=== PATIENT | male | born 1985 | race Caucasian/White ===

== ENCOUNTER 2022-02-11 22:59 | Emergency (ER) | payer BC, SELFPAY ==
[2022-02-11 23:48] VITALS: BP 151/96; PULSE 100; RESP 18; TEMP 36.6; O2SAT 97; BMI 28.7
[2022-02-12 00:14] VITALS: BP 134/94; PULSE 100; RESP 18; O2SAT 98
--- NOTE | 2022-02-12 00:30 | ED.NURSE ---
at bedside for lac repair
--- NOTE | 2022-02-12 00:36 | ED_ITS ---
HPI - Wound/Laceration General Chief Complaint: Laceration/Wound Stated Complaint: Laceration on right pointer finger Time Seen by Provider: 02/11/22 23:21 History of Present Illness HPI narrative: Patient is a 36-year-old gentleman who cut the palmar aspect of his index finger right hand cutting a piece of plastic tonight. He suffered a 3 cm laceration. He has normal neuromuscular function. He is not up-to-date on his tetanus shot. He has no other significant injuries. Related Data Home Medications Medication Instructions Recorded Confirmed No Known Home Medications 02/11/22 02/11/22 Allergies Allergy/AdvReac Type Severity Reaction Status Date / Time Penicillins Allergy Verified 02/11/22 23:54 migraine med & another Allergy Uncoded 02/11/22 23:54 unknown Review of Systems Status of ROS: Reports: 6 or more systems reviewed and unremarkable except as noted in History and below [facility] Medical History Depression Gastroparesis Surgical History History of discectomy Social History Smoking Status: Current every day smoker What tobacco products do you use: cigarettes Smoking packs per day: 1 Smoking cigarettes per day: 20.0 Years smoked: 20 Smoking pack-years: 20.00 Do you use any of these nicotine containing products: None Second hand tobacco smoke exposure: Yes How often do you have a drink containing alcohol: never How often do you have six or more drinks on one occasion: Never AUDIT-C Alcohol total score: 0 Non-prescribed substance use: denies use service: No Exam Narrative: Exam Narrative: EXAM GENERAL: Patient appears comfortable and well. EYES: No scleral icterus. LYMPH: No supraclavicular or cervical lymphadenopathy. SKIN: Laceration as noted above on the right index finger. EXT: No dependent lower extremity pedal edema. HEART: Regular rate and rhythm with no murmurs, rubs, or gallops. LUNGS: Clear to auscultation bilaterally with no crackles or wheezes. ABD: Soft, non tender, non distended. PSYCH: Good eye contact, speech is not pressured. Const: Vital Signs, click to edit/add: Vital Signs - 24 hr 02/11/22 23:48 02/12/22 00:14 Temperature 97.8 F Pulse Rate [Left P ulse Oximeter] 100 100 Respiratory Rate 18 18 Blood Pressure [Le ft Upper Arm] 151/96 H 134/94 H Pulse Oximetry 97 98 Course Course Hospital Course: The wound was cleaned and injected with 0 2% lidocaine without epinephrine. I then closed the defect using for running 3-0 Ethilon sutures. He was instructed on wound care and will follow-up in 10 days for suture removal. Vital Signs Vital signs: Initial Vital Signs Temperature 97.8 F 02/11/22 23:48 Temperature Source Temporal Artery Scan 02/11/22 23:48 Pulse Rate 100 02/11/22 23:48 Respiratory Rate 18 02/11/22 23:48 Blood Pressure 151/96 H 02/11/22 23:48 Blood Pressure Mean 114 02/11/22 23:48 Blood Pressure Position Sitting 02/11/22 23:48 Pulse Oximetry 97 02/11/22 23:48 Oxygen Delivery Method 02/11/22 23:48 Vital Signs Temperature 97.8 F 02/11/22 23:48 Pulse Rate 100 02/11/22 23:48 Respiratory Rate 18 02/11/22 23:48 Blood Pressure 151/96 H 02/11/22 23:48 Pulse Oximetry 97 02/11/22 23:48 Temperature 97.8 F 02/11/22 23:48 Pulse Rate 100 02/12/22 00:14 Respiratory Rate 18 02/12/22 00:14 Blood Pressure 134/94 H 02/12/22 00:14 Pulse Oximetry 98 02/12/22 00:14 Discharge Plan Discharge Clinical Impression: Laceration Patient Disposition: Home, Self-Care Condition: Stable Instructions: Finger Laceration (ED) Additional Instructions: Sures out in 10days Activity Level: No Restrictions Discharge Diet: Regular Prescriptions: No Action No Known Home Medications 0RF Follow Up/Referrals: Heraclio Miller MD [Primary Care Provider] - Stand Alone Forms: My[employer] Info Instructions
[2022-02-12] MEDS: TETANUS/DIPHTH/PERTUSSIS 0.5 ML SYRINGE IM (00:56)
== END 2022-02-12 01:16 | disposition home or self-care (01) ==
LOC: ED 02-12 01:09
PROVIDERS: Emergency Provider Internal Medicine; PCP Family Medicine
DX: S61.210A Laceration without foreign body of right index finger without damage to nail, initial encounter (principal); W26.0XXA Contact with knife, initial encounter
CPT/HCPCS: 12002; 90471; 90715; 99283

== ENCOUNTER 2022-04-17 14:41 | Emergency (ER) | payer BC, SELFPAY ==
[2022-04-17 14:50] VITALS: BP 133/101; RESP 20; TEMP 36.2; O2SAT 97; BMI 31.0
--- NOTE | 2022-04-17 15:23 | ED_ITS ---
HPI - Neck Pain/Injury General Chief Complaint: Neck Injury/Pain Stated Complaint: Can't move his neck/Pain Time Seen by Provider: 04/17/22 14:48 History of Present Illness HPI Narrative: This 36-year-old male comes in with neck pain and stiffness. He has chronic neck issues with associated pain and stiffness. He has seen specialists at [facility]. About a year ago he had a surgery to his cervical spine and about a month ago he had a steroid injection. He does not report any recent injury event or overuse activity. He states that he woke up this morning with significantly increased pain in his neck. He also reports some tingling sensation radiating into his right arm over the past couple weeks. 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 He has been taking Tylenol and ibuprofen as needed and directed but is not on any other prescription medications for his neck symptoms. Related Data Home Medications Medication Instructions Recorded Confirmed bupropion HCl 150 mg tablet,12 hr 150 mg PO Q12H 04/17/22 04/17/22 sustained-release omeprazole 20 mg capsule,delayed 20 mg PO DAILY 04/17/22 04/17/22 release Previous Rx's Medication Instructions Recorded cyclobenzaprine 10 mg tablet 10 mg PO TID #15 tabs 04/17/22 ketorolac 10 mg tablet 10 mg PO Q8H 5 days #15 tabs 04/17/22 methylprednisolone 4 mg tablets in See Rx Instructions PO .COMPLEX 04/17/22 a dose pack (Medrol (Paulie)) #21 ea Allergies Allergy/AdvReac Type Severity Reaction Status Date / Time Penicillins Allergy Verified 02/11/22 23:54 migraine med & another Allergy Uncoded 02/11/22 23:54 unknown Review of Systems Status of ROS: Reports: 10 or more systems reviewed and unremarkable except as noted in History and below Narrative: Constitutional: No fevers, no weight gain or loss. Eyes: No discharge. No vision changes. HENT: No congestion, no sore throat, no ear pain. Cardiovascular: No chest pain, no palpitations. Respiratory: No shortness of breath, no wheezes, no cough. Gastrointestinal: No abdominal pain, no vomiting, no diarrhea. Genitourinary: No dysuria, no hematuria. Musculoskeletal: Decreased range of motion of his neck due to pain. Skin: No rashes, no pruritis. Neurological: No dizziness, weakness, sensory change, speech change. Endo/Heme/Allergies: No bruising or bleeding. No polydipsia. Pysch: no suicidality, no anxiety, no insomnia. All other systems reviewed and are negative. [facility] Medical History Depression Gastroparesis Surgical History History of discectomy Social History Smoking Status: Current every day smoker What tobacco products do you use: cigarettes Smoking packs per day: 1 Smoking cigarettes per day: 20.0 Years smoked: 20 Smoking pack-years: 20.00 Do you use any of these nicotine containing products: None Second hand tobacco smoke exposure: Yes How often do you have a drink containing alcohol: never How often do you have six or more drinks on one occasion: Never AUDIT-C Alcohol total score: 0 Non-prescribed substance use: denies use service: No Exam Narrative: Exam Narrative: Constitutional: Well-developed, well-nourished, no acute distress. HEENT: Normocephalic, atraumatic. Neck: Normal range of motion. Nontender. Supple. Heart: Regular. No murmurs. Normal rate. Intact distal pulses. Lungs: Clear to auscultation. No chest discomfort. No wheezes, rhonchi, or rales. Abdomen: Normal bowel sounds. Nontender. No rebound tenderness. Genitalia: Deferred. Back: No midline tenderness. Diffuse pain in the neck with decreased range of motion. No midline tenderness when palpating along the spine. Extremities: Normal range of motion. No injury. Skin: Intact. No rash. Warm. No erythema or pallor. Neurologic: No weakness. Manager Hi strength is equal bilaterally. Alert and oriented. He reports tingling sensations throughout his whole right upper extremity. Psychiatric: No suicidality. No anxiety or depression. No insomnia. Nursing notes and vitals signs are reviewed. Const: Vital Signs, click to edit/add: Vital Signs - 24 hr 04/17/22 14:50 Temperature 97.1 F L Respiratory Rate 20 Blood Pressure [Ri ght Upper Arm] 133/101 H Pulse Oximetry 97 Oxygen Delivery Me thod Room Air Course Vital Signs Vital signs: Initial Vital Signs Temperature 97.1 F L 04/17/22 14:50 Temperature Source Temporal Artery Scan 04/17/22 14:50 Respiratory Rate 04/17/22 14:50 Blood Pressure 133/101 H 04/17/22 14:50 Blood Pressure Mean 111 04/17/22 14:50 Blood Pressure Position Sitting 04/17/22 14:50 Pulse Oximetry 97 04/17/22 14:50 Oxygen Delivery Method 04/17/22 14:50 Vital Signs Temperature 97.1 F L 04/17/22 14:50 Respiratory Rate 20 04/17/22 14:50 Blood Pressure 133/101 H 04/17/22 14:50 Pulse Oximetry 97 04/17/22 14:50 Oxygen Delivery Method 04/17/22 14:50 Temperature 97.1 F L 04/17/22 14:50 Respiratory Rate 04/17/22 14:50 Blood Pressure 133/101 H 04/17/22 14:50 Pulse Oximetry 97 04/17/22 14:50 Oxygen Delivery Method 04/17/22 14:50 MDM - Neck Pain/Injury MDM Narrative Medical decision making narrative: This patient comes in with a flare up of neck pain and some paresthesias in his right upper extremity. He is currently following with [facility]. He does not report any recent injury event or strenuous activity. There is no need for imaging studies at this time. He is encouraged to follow up with orthopedic clinic for further evaluation and treatment. He did receive an intramuscular injection of Toradol 30 mg. Prescriptions for Medrol Dosepak, Flexeril, and Toradol are also provided. Discharge Plan Discharge Clinical Impression: Cervical radiculopathy Patient Disposition: Home, Self-Care Condition: Unchanged Instructions: Cervical Radiculopathy (ED) Additional Instructions: Take medication as needed and indicated. Follow up with orthopedic clinic for further evaluation and treatment. Prescriptions: New ketorolac 10 mg tablet 10 mg PO Q8H 5 Days Qty: 15 0RF methylprednisolone [Medrol (Paulie)] 4 mg tablets,dose pack See Rx Instructions .ROUTE .COMPLEX Qty: 21 0RF Rx Instructions: orally per package directions cyclobenzaprine 10 mg tablet 10 mg PO TID Qty: 15 0RF No Action omeprazole 20 mg capsule,delayed release(DR/EC) 20 mg PO DAILY bupropion HCl 150 mg tablet sustained-release 12 hr 150 mg PO Q12H Label Comments: TAKE 1 TABLET (150 MG) BY MOUTH TWO TIMES DAILY. Follow Up/Referrals: Heraclio Miller MD [Primary Care Provider] - Stand Alone Forms: [employer] Info Instructions
[2022-04-17] MEDS: KETOROLAC 30 MG/ML inj IM (15:31)
== END 2022-04-17 16:10 | disposition home or self-care (01) ==
LOC: ED 15:41
PROVIDERS: Emergency Provider Emergency Medicine Emergency Medical Services; PCP Family Medicine
DX: M54.12 Radiculopathy, cervical region (principal)
CPT/HCPCS: 96372; 99284; J1885

== ENCOUNTER 2022-06-06 14:00 | Outpatient (RCR) | payer BC, SELFPAY | END 2022-08-12 10:01 | disposition home or self-care (01) | PROVIDERS: PCP Family Medicine; Visit Provider Physician Assistant Surgical | DX: M48.02 Spinal stenosis, cervical region (principal); Z51.89 Encounter for other specified aftercare | CPT/HCPCS: 97012; 97110; 97140; 97161 ==

== ENCOUNTER 2022-11-13 20:25 | Emergency (ER) | payer BC, SELFPAY ==
[2022-11-13 20:42] VITALS: BP 137/93; PULSE 93; RESP 18; TEMP 36.4; O2SAT 98
--- NOTE | 2022-11-13 21:03 | ED_ITS ---
HPI - General Adult General Time Seen by Provider: 21:03 Date Seen: 11/13/22 Chief complaint: Headache/Migraine Stated complaint: Migraine Time Seen by Provider: 11/13/22 20:32 Source: patient Mode of arrival: ambulatory Limitations: no limitations History of Present Illness HPI narrative: Patient is a 37 year white male Ion history of headaches history of cervical disc replacement, he has had some next disc disease after his disc replacement and is contemplating doing additional work there. He has had headaches in the past. He reports he has got a headache over the last 3 days it has built up in intensity feels it in the frontal area of his head he has not had sinus symptoms, no fever chills, neck stiffness no nuchal rigidity, no thunderclap nature to the headache. Patient has no normal neurologic complaints, he does feel mildly photophobic. He has had tension and some type of migrainous equivalent headache in the past Related Data Home Medications Medication Instructions Recorded Confirmed bupropion HCl 150 mg tablet,12 hr 150 mg PO Q12H 04/17/22 04/17/22 sustained-release omeprazole 20 mg capsule,delayed 20 mg PO DAILY 04/17/22 04/17/22 release Previous Rx's Medication Instructions Recorded cyclobenzaprine 10 mg tablet 10 mg PO TID #15 tabs 04/17/22 ketorolac 10 mg tablet 10 mg PO Q8H 5 days #15 tabs 04/17/22 methylprednisolone 4 mg tablets in See Rx Instructions PO .COMPLEX 04/17/22 a dose pack (Medrol (Paulie)) #21 ea Allergies Allergy/AdvReac Type Severity Reaction Status Date / Time Penicillins Allergy Verified 02/11/22 23:54 migraine med & another Allergy Uncoded 02/11/22 23:54 unknown Review of Systems Status of ROS: Reports: 6 or more systems reviewed and unremarkable except as noted in History and below [facility] Medical History Depression ?F32.A - Depression, unspecified (ICD-10) Gastroparesis ?K31.84 - Gastroparesis (ICD-10) Surgical History History of discectomy ?Z98.890 - Other specified postprocedural states (ICD-10) Social History Smoking Status: Current every day smoker What tobacco products do you use: cigarettes Smoking packs per day: 1 Smoking cigarettes per day: 20.0 Years smoked: 20 Smoking pack-years: 20.00 Do you use any of these nicotine containing products: None Second hand tobacco smoke exposure: Yes How often do you have a drink containing alcohol: never How often do you have six or more drinks on one occasion: Never AUDIT-C Alcohol total score: 0 Non-prescribed substance use: denies use service: No Exam Narrative: Exam Narrative: Objective: Patient is alert orient x3, noncyanotic, blood pressure is within normal, vital signs otherwise unremarkable In general no marked distress HEENT shows pupils are equal react to light extra moves intact no facial asymmetry mouth clear neck is supple Neurologic grossly nonfocal Const: Vital Signs, click to edit/add: Vital Signs - 24 hr 11/13/22 20:42 Temperature 97.5 F L Pulse Rate [Left P ulse Oximeter] 93 Respiratory Rate 18 Blood Pressure [Ri ght Upper Arm] 137/93 H Pulse Oximetry 98 Oxygen Delivery Me thod Room Air Course Vital Signs Vital signs: Initial Vital Signs Temperature 97.5 F L 11/13/22 20:42 Temperature Source Temporal Artery Scan 11/13/22 20:42 Pulse Rate 93 11/13/22 20:42 Pulse Rhythm Regular 11/13/22 20:42 Respiratory Rate 18 11/13/22 20:42 Blood Pressure 137/93 H 11/13/22 20:42 Blood Pressure Mean 107 11/13/22 20:42 Blood Pressure Position Sitting 11/13/22 20:42 Pulse Oximetry 98 11/13/22 20:42 Oxygen Delivery Method Room Air 11/13/22 20:42 Vital Signs Temperature 97.5 F L 11/13/22 20:42 Pulse Rate 93 11/13/22 20:42 Respiratory Rate 18 11/13/22 20:42 Blood Pressure 137/93 H 11/13/22 20:42 Pulse Oximetry 98 11/13/22 20:42 Oxygen Delivery Method Room Air 11/13/22 20:42 Temperature 97.5 F L 11/13/22 20:42 Pulse Rate 93 11/13/22 20:42 Respiratory Rate 18 11/13/22 20:42 Blood Pressure 137/93 H 11/13/22 20:42 Pulse Oximetry 98 11/13/22 20:42 Oxygen Delivery Method Room Air 11/13/22 20:42 Medical Decision Making MDM Narrative Medical decision making narrative: Patient is a 37 year white male with headaches history of cervical disc replacement with a frontal type tension/migraine headache. Patient had no thunderclap nature no worrisome stigmata of subarachnoid hemorrhage or other issue, I think at this point be gallardo treat him with pain medication will give him IV Toradol/Benadryl/Reglan, will also had some Solu-Medrol. Will given 1 L IV fluid. Will also observe in the ED for period of time if he is improving will discharge home for rest observation light activity, and follow up with regular doctor next 48-72 hours. Discharge Plan Discharge Clinical Impression: Headache Patient Disposition: Home w/ Parent or Adult Condition: Improved Instructions: Acute Headache (ED) Additional Instructions: Rest, light activity, fluid, Tylenol or Advil as needed, update regular physician in the next 48-72 hours, return to ED sooner problems concerns worsening. Patient comfortable plan. Activity Level: Light activity Discharge Diet: Regular Prescriptions: No Action omeprazole 20 mg capsule,delayed release(DR/EC) 20 mg PO DAILY bupropion HCl 150 mg tablet sustained-release 12 hr 150 mg PO Q12H Patient Comments: TAKE 1 TABLET (150 MG) BY MOUTH TWO TIMES DAILY. ketorolac 10 mg tablet 10 mg PO Q8H 5 Days Qty: 15 0RF methylprednisolone [Medrol (Paulie)] 4 mg tablets,dose pack See Rx Instructions .ROUTE .COMPLEX Qty: 21 0RF Rx Instructions: orally per package directions cyclobenzaprine 10 mg tablet 10 mg PO TID Qty: 15 0RF Follow Up/Referrals: Heraclio Miller MD [Primary Care Provider] - Stand Alone Forms: [employer] Info Instructions
[2022-11-13] MEDS: 0.9 % SODIUM CHLORIDE 1000 ml 1,000 ML 6000 ML IV (21:16)
[2022-11-13] MEDS: METOCLOPRAMIDE HCL 10 MG in 0.9 % SODIUM CHLORIDE 100 ml 100 ML 306 MG IV (21:17)
[2022-11-13] MEDS: METHYLPREDNISOLONE SOD SUCC 62.5 MG/ML (125) 125 MG IVP (21:18)
[2022-11-13] MEDS: KETOROLAC 30 MG/ML inj IVP (21:20)
[2022-11-13] MEDS: diphenhydrAMINE 50 MG/ML inj 25 MG IVP (21:21)
== END 2022-11-13 22:17 | disposition home or self-care (01) ==
LOC: ED 21:18
PROVIDERS: Emergency Provider Family Medicine; PCP Family Medicine
DX: R51.9 Headache, unspecified (principal)
CPT/HCPCS: 96365; 96375; 99284; J1200; J1885; J2765; J2930; J7030

== ENCOUNTER 2023-03-22 02:49 | Emergency (ER) | payer BC, SELFPAY ==
[2023-03-22 02:54] VITALS: PULSE 75
[2023-03-22 02:55] VITALS: BP 145/78; PULSE 84; RESP 18; TEMP 36.7; O2SAT 99; BMI 31.3
--- NOTE | 2023-03-22 03:22 | ED.GENADULT ---
HPI - General Adult General Chief complaint: Neck Injury/Pain Stated complaint: Neck Pain Time Seen by Provider: 03/22/23 02:54 Source: patient Mode of arrival: ambulatory Limitations: no limitations History of Present Illness HPI narrative: 37-year-old male with ongoing history of difficulty in his neck presents to the emergency department for bilateral neck pain, increasingly bothersome for the past 4 days. No radiculopathy or neurological changes. History of known issues at C6, last underwent steroid injections through [facility] 6 months ago. Called his provider team yesterday and has a pending appointment a month from now, a sooner appointment could not be obtained. He has a history of surgery at this area about a year ago as well, did help temporarily. It sounds as though the last injection helped somewhat but now that it has worn off he has increased problems. He does continue to smoke. There is no weakness in the arms. No difficulty with the legs, bowel or bladder or other neurological changes. He has been taking Excedrin and Tylenol with no improvement in his symptoms. Did try 2 Aleve earlier tonight with no improvement as well. He has had advanced imaging on the neck with no new trauma or injury since. He was also evaluated in the emergency department earlier this year for similar complaints, those notes are reviewed. No recent use of steroids. Denies history of bleeding ulcers. Pain is achy and constant with sharp shooting pains to the back of the bilateral neck, right slightly worse than left. No pain in other areas. States that this is similar in characteristic in location to his previous areas of bothersome pain with no new features. Past medical history he states is benign, denies long-term medical problems or long-term prescriptions. Prior surgery at [facility], greater than 1 year ago. ROS notable for no other generalized, musculoskeletal, neurological, respiratory or skin changes. Related Data Home Medications Medication Instructions Recorded Confirmed omeprazole 20 mg capsule,delayed 20 mg PO DAILY 04/17/22 03/22/23 release venlafaxine 75 mg capsule,extended 75 mg PO DAILY 03/22/23 03/22/23 release 24 hr Previous Rx's Medication Instructions Recorded cyclobenzaprine 10 mg tablet 5 - 10 mg (0.5 - 1 x 10 mg) PO TID 03/22/23 PRN muscle spasm #30 tabs gabapentin 300 mg capsule 300 mg PO BID PRN #20 caps 03/22/23 ketorolac 10 mg tablet 10 mg PO Q8H PRN pain #7 tabs 03/22/23 prednisone 20 mg tablet 10 - 40 mg (0.5 - 2 x 20 mg) PO 03/22/23 DAILY #10 tabs Allergies Allergy/AdvReac Type Severity Reaction Status Date / Time Penicillins Allergy Mild Verified 03/22/23 02:57 PFSH PFS Medical History Depression ?F32.A - Depression, unspecified (ICD-10) Gastroparesis ?K31.84 - Gastroparesis (ICD-10) Surgical History History of discectomy ?Z98.890 - Other specified postprocedural states (ICD-10) Social History Smoking Status: Current every day smoker What tobacco products do you use: cigarettes Smoking packs per day: 1 Smoking cigarettes per day: 20.0 Years smoked: 20 Smoking pack-years: 20.00 Do you use any of these nicotine containing products: None Second hand tobacco smoke exposure: Yes How often do you have a drink containing alcohol: never How often do you have six or more drinks on one occasion: Never AUDIT-C Alcohol total score: 0 Non-prescribed substance use: denies use service: No Exam Const: Vital Signs, click to edit/add: Vital Signs - 24 hr 03/22/23 02:55 Temperature 98.0 F Pulse Rate [Right Pulse Oximeter] 84 Respiratory Rate 18 Blood Pressure [Ri ght Upper Arm] 145/78 H Pulse Oximetry 99 Oxygen Delivery Me thod Room Air Documenting provider has reviewed patient's vital signs: yes Common normals: no apparent distress General appearance: cooperative Other: Appears uncomfortable but answers questions appropriately with good insight. Tearful at times from pain HENMT: Common normals: normocephalic Head and scalp: normocephalic Face and sinus: normal facial exam Mouth: oral and palatal mucosa normal Throat: posterior oropharynx normal Eye: Common normals: conjunctivae normal General eye: normal appearance of both eyes Conjunctiva: conjunctiva(e) normal Neck & C-Spine: Common normals: no lymphadenopathy Other: Range of motion the neck seems normal. Normal from external inspection as well. No point bony midline tenderness. Paraspinal muscle tenderness is present, no rigidity. Resp: Common normals: normal respiratory effort, no use of accessory muscles and clear to auscultation bilaterally Effort & inspection: able to speak in complete sentences Auscultation: clear to auscultation bilaterally Cardio: Common normals: regular rate, regular rhythm, S1 normal heart sound, S2 normal heart sound and no murmurs Rate: regular rate Rhythm: regular rhythm Heart sounds: S1 normal and S2 normal Extremity: Other: Normal movement and strength in bilateral upper extremities. Neuro: Motor exam: strength 5/5 throughout and no movement abnormalities noted Psych: Attitude: engaged Activity/motor behavior: appropriate eye contact Insight: insight good Judgement: judgment good Skin: Common normals: no rashes or lesions noted General skin exam: no rashes or lesions noted Course Course Hospital Course: No signs of new trauma or injury, known pathology. Suspect flare up of ongoing degenerative process. Do not recommend repeat imaging or blood work. Discussed prednisone since he cannot get into his specialist, he was agreeable to this. Will give 40 mg p.o. x1 now and taper over the next week as well. Discussed pain control medications. Toradol will be given in ED IM, with gabapentin and Flexeril. He will have access to Toradol, Flexeril and gabapentin at home through new prescriptions. If he is not improving in 48 hours, he should contact his specialist again. Alarm symptoms such as loss of function in arms, neurological changes would warrant ED presentation. He verbalized understanding and agreement. See discharge instructions. Vital Signs Vital signs: Initial Vital Signs Temperature 98.0 F 03/22/23 02:55 Temperature Source Temporal Artery Scan 03/22/23 02:55 Pulse Rate 84 03/22/23 02:55 Respiratory Rate 18 03/22/23 02:55 Blood Pressure 145/78 H 03/22/23 02:55 Blood Pressure Mean 100 03/22/23 02:55 Blood Pressure Position Sitting 03/22/23 02:55 Pulse Oximetry 99 03/22/23 02:55 Oxygen Delivery Method Room Air 03/22/23 02:55 Vital Signs Temperature 98.0 F 03/22/23 02:55 Pulse Rate 84 03/22/23 02:55 Respiratory Rate 18 03/22/23 02:55 Blood Pressure 145/78 H 03/22/23 02:55 Pulse Oximetry 99 03/22/23 02:55 Oxygen Delivery Method Room Air 03/22/23 02:55 Temperature 98.0 F 03/22/23 02:55 Pulse Rate 84 03/22/23 02:55 Respiratory Rate 18 03/22/23 02:55 Blood Pressure 145/78 H 03/22/23 02:55 Pulse Oximetry 99 03/22/23 02:55 Oxygen Delivery Method Room Air 03/22/23 02:55 Discharge Plan Discharge Clinical Impression: Cervical radiculopathy Patient Disposition: Home w/ Parent or Adult Condition: Stable Instructions: Chronic Neck Pain (DC) Additional Instructions: As we discussed, there is no sign of a new problem in your neck. I am glad that you have a pending appointment with your technical information specialist again. You would likely benefit from another injection. As we discussed, I have started you on prednisone. It is a similar medication to the steroid shot except that it goes through the entire body. Unfortunately, it can cause a little bit of insomnia and irritability as well as increased appetite. For most people, you do start to notice improvement of your pain within 48 hours. I have given you a shot of Toradol, a common anti-inflammatory medication. I can provide more of this for you to have at home for the next couple of days until the prednisone kicks in. I have also given you Flexeril, also known as cyclobenzaprine. This is a muscle relaxant. It is likely to make you tired. Recommend taking 5 mg during the day and 10 mg at night. You may use it up to 3 times daily. I have also added gabapentin, a common nerve pain medication. It is not narcotic but it may also cause sedation. I would hope that you would find this helpful. Use it up to twice daily as needed and try to wean off of it in a few days once things are improving. If you are not noticing some improvement within 2 days, please contact your technical information specialist. You may continue using your Tylenol as well in the interim. My recommended dose is 1000 mg every 6 hours. This does not interact with the other medications. Come back to the emergency department if you have sudden loss of function in the arms, legs or other severe neurological changes. Activity Level: Activity as Tolerated Discharge Diet: Regular Prescriptions: New prednisone 20 mg tablet 10 - 40 mg PO DAILY Qty: 10 0RF Rx Instructions: 2 pills by mouth daily for 3 days, then 1 pill by mouth daily for 3 days, then half pill by mouth daily for 2 days. cyclobenzaprine 10 mg tablet 5 - 10 mg PO TID PRN (Reason: muscle spasm) Qty: 30 0RF gabapentin 300 mg capsule 300 mg PO BID PRNQty: 20 0RF ketorolac 10 mg tablet 10 mg PO Q8H PRN (Reason: pain) Qty: 7 0RF No Action omeprazole 20 mg capsule,delayed release(DR/EC) 20 mg PO DAILY venlafaxine 75 mg capsule,extended release 24hr 75 mg PO DAILY Stand Alone Forms: [employer] Info Instructions
[2023-03-22 03:23] VITALS: TEMP 36.7
[2023-03-22] MEDS: KETOROLAC 30 MG/ML inj IM (03:23)
[2023-03-22] MEDS: predniSONE 10 MG TABLET 40 MG PO (03:24)
[2023-03-22] MEDS: GABAPENTIN 300 MG CAPSULE PO (03:24)
[2023-03-22] MEDS: CYCLOBENZAPRINE HCL 10 MG TABLET PO (03:24)
[2023-03-22 03:44] VITALS: BP 132/74; PULSE 87; RESP 18; TEMP 36.7; O2SAT 99
[2023-03-22 03:46] VITALS: BP 132/74; PULSE 87; RESP 18; TEMP 36.7
== END 2023-03-22 03:46 | disposition home or self-care (01) ==
LOC: ED 03:39
PROVIDERS: Emergency Provider Family Medicine
DX: M54.12 Radiculopathy, cervical region (principal)
CPT/HCPCS: 96372; 99283; A9270; J1885; J7512

== ENCOUNTER 2024-03-27 09:58 | Emergency (ER) | payer BC, SELFPAY ==
[2024-03-27 10:07] VITALS: BP 117/80; PULSE 86; RESP 16; TEMP 36.4; O2SAT 96; BMI 30.7
--- NOTE | 2024-03-27 10:30 | ED_ITS ---
HPI - General Adult General Chief complaint: Nausea/Vomiting Stated complaint: Dehydration, bloody nose, nauseous Time Seen by Provider: 03/27/24 10:19 Source: patient Mode of arrival: ambulatory Limitations: no limitations History of Present Illness HPI narrative: Patient is a 38-year-old male with no pertinent medical problems presenting to the emergency department for multiple complaints that he thinks is related to dehydration. 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 Started last night he started to feel weak and nauseated. Symptoms have been pretty consistent since then. Has been trying drink plenty of fluids but has not had any change in the symptoms. Denies abdominal pain, headache, vision changes, diarrhea, dysuria, constipation, chest pain, shortness of breath, lightheadedness, dizziness. Has noticed his urine has been very dark. Is not aware of any sick contacts. Denies having symptoms like this before. Also notes he had 1 episode of epistaxis from his left nares that occurred while he was spitting shortly prior to arrival. The epistaxis has since resolved. Related Data Home Medications ?Medication ?Instructions ?Recorded ?Confirmed venlafaxine 75 mg capsule,extended 75 mg PO DAILY 03/22/23 03/27/24 release 24 hr Previous Rx's ?Medication ?Instructions ?Recorded prednisone 20 mg tablet 10 - 40 mg (0.5 - 2 x 20 mg) PO 03/22/23 DAILY #10 tabs ondansetron 4 mg disintegrating 4 mg PO Q6H #20 tabs 03/27/24 tablet Allergies Allergy/AdvReac Type Severity Reaction Status Date / Time Penicillins Allergy Mild Verified 03/27/24 10:12 Review of Systems Status of ROS: Reports: 10 or more systems reviewed and unremarkable except as noted in History and below [facility], [facility] Medical History Gastroparesis ?K31.84 - Gastroparesis (ICD-10) Depression ?F32.A - Depression, unspecified (ICD-10) Surgical History History of discectomy ?Z98.890 - Other specified postprocedural states (ICD-10) Social History Smoking Status: Current every day smoker What tobacco products do you use: cigarettes Smoking packs per day: 1 Smoking cigarettes per day: 20.0 Years smoked: 20 Smoking pack-years: 20.00 Do you use any of these nicotine containing products: None Second hand tobacco smoke exposure: Yes How often do you have a drink containing alcohol: never How often do you have six or more drinks on one occasion: Never AUDIT-C Alcohol total score: 0 Non-prescribed substance use: denies use service: No Exam Narrative: Exam Narrative: Const: Well-nourished, Well-developed, in mild distress Eyes: PERRL, no conjunctival injection, and symmetrical lids HENT: Atraumatic external nose and ears. Moist mucous membranes. Neck: Symmetric, trachea midline, No thyromegaly. CVS: RRR, No murmurs or gallops. Peripheral pulses 2+ and equal in all extremities RESP: Unlabored respiratory effort. Clear to auscultation bilaterally. GI: Nontender/Nondistended, No rebound or guarding. MSK:Extremities w/o deformity, Normal Active ROM Skin: Warm, Dry. No rashes or lesions. Neuro: Normal Muscle tone, No focal neurological deficits. Psych: Awake, Alert, & Oriented x3. Appropriate mood and affect. Const: Vital Signs, click to edit/add: Vital Signs - 24 hr 03/27/24 10:07 Temperature 97.6 F Pulse Rate [Pulse Oximeter] 86 Respiratory Rate 16 Blood Pressure [Ri ght Upper Arm] 117/80 Pulse Oximetry 96 Oxygen Delivery Me thod Room Air Course Vital Signs Vital signs: Initial Vital Signs Temperature 97.6 F 03/27/24 10:07 Temperature Source Temporal Artery Scan 03/27/24 10:07 Pulse Rate 86 03/27/24 10:07 Respiratory Rate 16 03/27/24 10:07 Blood Pressure 117/80 03/27/24 10:07 Blood Pressure Mean 92 03/27/24 10:07 Blood Pressure Position Sitting 03/27/24 10:07 Pulse Oximetry 96 03/27/24 10:07 Oxygen Delivery Method Room Air 03/27/24 10:07 Vital Signs Temperature 97.6 F 03/27/24 10:07 Pulse Rate 86 03/27/24 10:07 Respiratory Rate 16 03/27/24 10:07 Blood Pressure 117/80 03/27/24 10:07 Pulse Oximetry 96 03/27/24 10:07 Oxygen Delivery Method Room Air 03/27/24 10:07 Temperature 97.6 F 03/27/24 10:07 Pulse Rate 86 03/27/24 10:07 Respiratory Rate 16 03/27/24 10:07 Blood Pressure 117/80 03/27/24 10:07 Pulse Oximetry 96 03/27/24 10:07 Oxygen Delivery Method Room Air 03/27/24 10:07 Medications Administered Medications: Discontinued Medications Generic Name Dose Route Start Last Admin Trade Name Lady PRN Reason Stop Dose Admin Lactated Ringer's 1,000 mls @ 1,000 mls/hr 03/27/24 10:29 03/27/24 11:44 Lactated Ringers 1000 Ml IV 03/27/24 11:28 Infused .Q1H ONE Infusion Ondansetron HCl 4 mg 03/27/24 10:29 03/27/24 10:49 Ondansetron 2 Mg/Ml Inj IVP 03/27/24 10:30 4 mg ONCE ONE Administration Medical Decision Making MDM Narrative Medical decision making narrative: Patient is a 38-year-old male presenting to the emergency department for nausea, weakness, epistaxis. The epistaxis occurred once has since resolved. No longer concerned about that he states. He still is concerned that he is dehydrated is still currently feeling nauseated. Has not taking anything at for nausea. Will give him Zofran and a L of fluids. Symptoms could be from dehydration, electrolyte abnormality, viral infection. Will do a lipase, magnesium, CBC, CMP, COVID/flu. Patient's lab work shows no concerning abnormalities. He is feeling much better after the medication. He has slightly elevated AST and ALT and no previous records to compare to. He was informed of this. Informed him to follow up outpatient for them. He is agreeable to this plan. Will be discharged with Zofran. Lab Data Labs: Lab Results 03/27/24 Range/Units 10:42 WBC 9.52 (4.50-11.00) K/uL RBC 5.72 (4.30-5.90) m/uL Hgb 16.8 (13.5-17.5) gm/dL Hct 50.3 (37.0-53.0) % MCV 88 (80-100) fL MCH 29 (26-34) pg MCHC 33 (32-36) gm/dL RDW Coeff of Robyn 12.3 (11.5-15.5) % Plt Count 238 (140-440) K/uL Neut % (Auto) 53.1 (42.0-72.0) % Lymph % (Auto) 31.4 (20-44) % Douglas % (Auto) 7.8 (0.0-11.0) % Eos % (Auto) 5.1 (0.0-7.0) % Baso % (Auto) 0.5 (0.0-3.0) % Neut # (Auto) 5.05 (1.7-7.0) K/uL Lymph # (Auto) 2.99 H (0.90-2.90) K/uL Douglas # (Auto) 0.70 (0.00-0.90) K/UL Eos # (Auto) 0.49 (0.00-0.50) K/uL Baso # (Auto) 0.05 (0.00-0.30) K/uL Abs Immat Gran (auto) 0.20 (0.00-0.30) K/uL Imm/Tot Granulo (auto) 2.1 % Sodium 137 (135-149) mmol/L Potassium 4.5 (3.6-5.1) mmol/L Chloride 103 (96-114) mmol/L Carbon Dioxide 28 (20-32) mmol/L Anion Gap 6 L (7-15) mEq/L BUN 21 (5-24) mg/dL Creatinine 1.1 (0.5-1.5) mg/dL Estimated Creat Clear 95.08 Estimated GFR 87 ml/min Glucose 116 H (60-115) mg/dL Calcium 10.0 (8.4-10.6) mg/dL Magnesium 1.9 (1.5-2.6) mg/dL Total Bilirubin 0.9 (0.1-1.5) mg/dL AST 48 H (12-35) U/L ALT 90 H (4-50) U/L Alkaline Phosphatase 64 (40-150) U/L Total Protein 8.1 (6.0-8.3) g/dL Albumin 4.9 (3.3-5.0) g/dL Lipase 105 (23-300) U/L SARS-CoV-2 (PCR) Negative SARS-CoV-2 (Negative) Influenza Type A (PCR) Negative PCR FLU A (Negative) Influenza Type B (PCR) Negative PCR FLU B (Negative) Discharge Plan Discharge Clinical Impression: Dehydration Patient Disposition: Home, Self-Care Condition: Stable Instructions: Dehydration (ED) Additional Instructions: No slightly elevated liver enzyme testing should follow up with a primary care provider about these. Take the Zofran as needed for nausea. Make sure you stay well hydrated. Return to emergency department for new or worsening symptoms Prescriptions: New ondansetron 4 mg tablet,disintegrating 4 mg PO Q6H Qty: 20 0RF No Action venlafaxine 75 mg capsule,extended release 24hr 75 mg PO DAILY prednisone 20 mg tablet 10 - 40 mg PO DAILY Qty: 10 0RF Rx Instructions: 2 pills by mouth daily for 3 days, then 1 pill by mouth daily for 3 days, then half pill by mouth daily for 2 days. Follow Up/Referrals: Provider,Not a Local [Primary Care Provider] - Stand Alone Forms: [employer] Info Instructions
[2024-03-27] MEDS: ONDANSETRON 2 MG/ML inj 4 MG IVP (10:49)
[2024-03-27] MEDS: LACTATED RINGERS 1000 ML 1,000 ML IV (10:49)
[2024-03-27 11:05] LABS: Basophils Absolute Auto 0.05 K/uL (0.00-0.30); Basophils Percent Auto 0.5 % (0.0-3.0); Eosinophils Absolute Auto 0.49 K/uL (0.00-0.50); Eosinophils Percent Auto 5.1 % (0.0-7.0); Hematocrit 50.3 % (37.0-53.0); Hemoglobin* 16.8 gm/dL (13.5-17.5); Immature Granulocytes Pct Auto 2.1 %; Lymphocytes Absolute Auto 2.99 K/uL (0.90-2.90); Lymphocytes Percent Auto 31.4 % (20-44); Mean Corpuscular HGB Conc 33 gm/dL (32-36); Mean Corpuscular Hemoglobin 29 pg (26-34); Mean Corpuscular Volume 88 fL (80-100); Monocytes Percent Auto 7.8 % (0.0-11.0); Neutrophils Absolute Auto 5.05 K/uL (1.7-7.0); Neutrophils Percent Auto 53.1 % (42.0-72.0); Platelet Count* 238 K/uL (140-440); RDW Coefficient of Variation % 12.3 % (11.5-15.5); Red Blood Count 5.72 m/uL (4.30-5.90); White Blood Count* 9.52 K/uL (4.50-11.00)
[2024-03-27 11:12] LABS: Albumin* 4.9 g/dL (3.3-5.0)
[2024-03-27 11:13] LABS: Chloride* 103 mmol/L (96-114); Potassium* 4.5 mmol/L (3.6-5.1); Sodium* 137 mmol/L (135-149)
[2024-03-27 11:15] LABS: Alkaline Phosphatase* 64 U/L (40-150); Anion Gap 6 mEq/L (7-15); Aspartate Amino Transferase* 48 U/L (12-35); Bilirubin Total* 0.9 mg/dL (0.1-1.5); Carbon Dioxide* 28 mmol/L (20-32); Creatinine* 1.1 mg/dL (0.5-1.5); Est. Creatinine Clearance* 95.08; Estimated Glomerular Filt Rate 87 ml/min; Total Protein* 8.1 g/dL (6.0-8.3)
[2024-03-27 11:16] LABS: Alanine Aminotransferase* 90 U/L (4-50); Blood Urea Nitrogen* 21 mg/dL (5-24); Glucose* 116 mg/dL (60-115); Lipase* 105 U/L (23-300); Magnesium* 1.9 mg/dL (1.5-2.6)
[2024-03-27 11:28] LABS: Slide Review Reflex No
[2024-03-27 11:43] LABS: PCR FLU A Negative PCR FLU A (Negative); PCR FLU B Negative PCR FLU B (Negative); SARS PCR* Negative SARS-CoV-2 (Negative)
== END 2024-03-27 12:06 | disposition home or self-care (01) ==
PROVIDERS: Emergency Provider Student in an Organized Health Care Education/Training Program
DX: E86.0 Dehydration (principal)
CPT/HCPCS: 36415; 80053; 83690; 83735; 85025; 87631; 96374; 99283; 99284; J2405; J7120

== ENCOUNTER 2025-03-18 14:21 | Outpatient (RCR) | payer BC, SELFPAY | END 2025-06-10 14:21 | disposition home or self-care (01) | PROVIDERS: Visit Provider Specialist | DX: Z48.89 Encounter for other specified surgical aftercare (principal); M50.33 Other cervical disc degeneration, cervicothoracic region; M54.12 Radiculopathy, cervical region; Z51.89 Encounter for other specified aftercare | CPT/HCPCS: 97110; 97112; 97162 ==